=== PATIENT | male | born 1990 | race Caucasian/White ===

== ENCOUNTER 2017-03-25 09:47 | Emergency (ER) | payer SELFPAY ==
[2017-03-25 10:09] VITALS: BP 123/68
--- NOTE | 2017-03-25 10:52 | UC ---
Skin Complaint HPI - HPI Summary HPI Summary: 2 days ago noticed a red bumpy rash on L back and ribs. Is very painful and itchy, much worse today. friends/family told him it looked like shingles. Denies fever, vomiting, cough, or other signs of illness. - History of Current Complaint Hx Obtained From: Patient Onset/Duration: Gradual Onset, Lasting Days Timing: Constant Onset Severity: Mild Current Severity: Moderate Location: Discrete Character: Pain, Redness Aggravating: Clothing Alleviating: Nothing Associated Signs & Symptoms: Positive: Rash <Angelita Ling - Last Filed: 03/25/17 10:49> <Mylene Roque - Last Filed: 03/25/17 11:27> - History of Current Complaint Chief Complaint: UCRash Time Seen by Provider: 03/25/17 10:24 Stated Complaint: RASH - Allergy/Home Medications Allergies/Adverse Reactions: Allergies Allergy/AdvReac Type Severity Reaction Status Date / Time No Known Allergies Allergy Verified 03/25/17 10:09 Review of Systems Constitutional: Negative Skin: Rash Eyes: Negative ENT: Negative Respiratory: Negative Cardiovascular: Negative Gastrointestinal: Negative Genitourinary: Negative Motor: Negative Neurovascular: Negative Musculoskeletal: Negative Neurological: Negative Psychological: Negative All Other Systems Reviewed And Are Negative: Yes <Angelita Ling - Last Filed: 03/25/17 10:49> PMH/Surg Hx/FS Hx/Imm Hx Previously Healthy: Yes Endocrine History Of: Denies: Diabetes, Thyroid Disease Cardiovascular History Of: Denies: Cardiac Disorders, Hypertension Respiratory History Of: Denies: COPD, Asthma GI/ History Of: Denies: Ulcer - Surgical History Surgical History: Yes Surgery Procedure, Year, and Place: Appendectomy, 2006, [facility] [place] - Family History Known Family History: Positive: None, Diabetes - grandmother Negative: Cardiac Disease, Hypertension - Social History Alcohol Use: Weekly Alcohol Amount: last night at [employer] party Substance Use Type: Heroin, Marijuana, 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 Smoking Status (MU): Heavy Every Day Tobacco Smoker Type: Cigarettes Amount Used/How Often: 1/2 PPD Length of Time of Smoking/Using Tobacco: since age 15 Have You Smoked in the Last Year: Yes When Did the Patient Quit Smoking/Using Tobacco: 6 MO AGO Household Exposure Type: Cigarettes - Immunization History Most Recent Influenza Vaccination: Not the <Angelita Ling - Last Filed: 03/25/17 10:49> Physical Exam Triage Information Reviewed: Yes Appearance: Well-Appearing, No Pain Distress, Well-Nourished Vital Signs: Initial Vital Signs Temp 99.6 F 03/25/17 10:02 Pulse 57 03/25/17 10:02 Resp 16 03/25/17 10:02 BP 123/68 03/25/17 10:02 Pulse Ox 100 03/25/17 10:02 Vital Signs Reviewed: Yes Eye Exam: Normal Eyes: Positive: Conjunctiva Clear ENT Exam: Normal ENT: Positive: Normal ENT inspection, Hearing grossly normal, Pharynx normal, TMs normal. Negative: Tonsillar swelling, Tonsillar exudate Dental Exam: Other - edentulous Neck exam: Normal Respiratory Exam: Normal Respiratory: Positive: Lungs clear, Normal breath sounds, No respiratory distress, No accessory muscle use Cardiovascular Exam: Normal Cardiovascular: Positive: RRR, No Murmur Musculoskeletal Exam: Normal Neurological Exam: Normal Neurological: Positive: Alert Psychological Exam: Normal Skin Exam: Other - grouped papular and vesicular rash on back and L ribs in dermatomal distribution <Angelita Ling - Last Filed: 03/25/17 10:49> Vital Signs: Initial Vital Signs Temp 99.6 F 03/25/17 10:02 Pulse 57 03/25/17 10:02 Resp 16 03/25/17 10:02 BP 123/68 03/25/17 10:02 Pulse Ox 100 03/25/17 10:02 <Mylene Roque - Last Filed: 03/25/17 11:27> Course/Dx - Diagnoses Provider Diagnoses: herpes zoster L trunk. elevated blood pressure due to discomfort <Angelita Ling - Last Filed: 03/25/17 10:49> Discharge <Angelita Ling - Last Filed: 03/25/17 10:49> <Mylene Roque - Last Filed: 03/25/17 11:27> - Discharge Plan Condition: Stable Disposition: HOME Prescriptions: Indomethacin CAP* [Indocin CAP*] 50 mg PO TID PRN #30 cap PRN Reason: Pain ValACYclovir (*) [Valtrex 1 GM(*)] 1 gm PO TID #21 tab Patient Education Materials: Shingles (ED) Referrals: [facility] [place] PHYSICIAN REFERRAL [Outside] Additional Instructions: Please arrange to see a primary care provider for your ongoing health needs in the next month. Attestation Statement User Type: Provider - I was available for consult. This patient was seen by the TITA. The patient was not presented to, seen by, or examined by me. -Estevan <Mylene Roque - Last Filed: 03/25/17 11:27>
== END 2017-03-25 11:01 | disposition home or self-care (01) ==
LOC: UCEAST 09:47
DX: B02.9 Zoster without complications (principal); R03.0 Elevated blood-pressure reading, without diagnosis of hypertension; Z87.891 Personal history of nicotine dependence
CPT/HCPCS: 99212; G0463

== ENCOUNTER 2017-08-12 13:33 | Emergency (ER) | payer SELFPAY ==
[2017-08-12 13:40] VITALS: BP 116/71
[2017-08-12] MEDS ORDERED: Eye Irrigation Solution 30 ML BOTTLE LEFT EYE ONE (13:58)
[2017-08-12] MEDS ORDERED: Fluorescein Sodium TOPICAL* 1 MG TEST OPHTHALMIC ONE (13:58)
[2017-08-12] MEDS ORDERED: Tetracaine 0.5% OPTH.SOL 4 ML* 1 DROP BTL LEFT EYE ONE (13:58)
--- NOTE | 2017-08-12 14:39 | UC ---
Eye Complaint HPI - HPI Summary HPI Summary: ONE DAY OF LEFT EYE REDNESS, IRRITATION, AND LIGHT SENSITIVITY. CLEAR DISCHARGE , PURULENT DISCHARGE THIS MORNING. WEARS CONTACT LENSES. NO RASHES. NO CHANGES IN VISION. NO PAIN WITH EYE MOVEMENT. - History of Current Complaint Chief Complaint: UCEye Stated Complaint: EYE ISSUE Time Seen by Provider: 08/12/17 13:52 Hx Obtained From: Patient Onset/Duration: Gradual Onset, Lasting Hours Timing: Constant Severity Initially: Moderate Severity Currently: Moderate Location of Injury: Conjunctiva Character: Dull Alleviating Factor(s): Nothing Associated Signs And Symptoms: Positive: Photophobia, Drainage (Clear), Drainage (Purulent) Related History: Similar Episode - IN ADOLESCENCE, Diagnosed As: - CONJUNCTIVITIS - Risk Factors Penetrating Injury Risk Factor: Negative Acute Glaucoma Risk Factors: Eye Inflammation Optic Artery Occlusion Risk Factors: Negative - Allergies/Home Medications Allergies/Adverse Reactions: Allergies Allergy/AdvReac Type Severity Reaction Status Date / Time No Known Allergies Allergy Verified 08/12/17 13:40 PMH/Surg Hx/FS Hx/Imm Hx Previously Healthy: Yes - Surgical History Surgical History: Yes Surgery Procedure, Year, and Place: Appendectomy, 2007, [facility] [place] - Family History Known Family History: Positive: None, Diabetes - grandmother Negative: Cardiac Disease, Hypertension - Social History Occupation: Unemployed Lives: With Family Alcohol Use: Occasionally Alcohol Amount: last night at [employer] Substance Use Type: Marijuana Substance Use Comment - Amount & Last Used: hx heroine Smoking Status (MU): Former Smoker Type: Cigarettes Amount Used/How Often: 1/2 PPD Length of Time of Smoking/Using Tobacco: since age 15 Have You Smoked in the Last Year: Yes When Did the Patient Quit Smoking/Using Tobacco: 2 weeks Household Exposure Type: Cigarettes Cessation Counseling: Patient Advised to Stop - Immunization History Most Recent Influenza Vaccination: none Review of Systems Constitutional: Negative Skin: Negative Eyes: Drainage, Eye Redness, Photophobia ENT: Negative Respiratory: Negative Cardiovascular: Negative Gastrointestinal: Negative Genitourinary: Negative Motor: Negative Neurovascular: Negative Musculoskeletal: Negative Neurological: Negative Psychological: Negative Is Patient Immunocompromised?: No All Other Systems Reviewed And Are Negative: Yes Physical Exam Triage Information Reviewed: Yes Appearance: Well-Appearing, No Pain Distress, Well-Nourished, Thin Vital Signs: Initial Vital Signs Temp 98.4 F 08/12/17 13:34 Pulse 93 10/17/17 13:34 Resp 16 08/12/17 13:34 BP 116/71 08/12/17 13:34 Pulse Ox 100 08/12/17 13:34 Vital Signs Reviewed: Yes Eyes: Positive: Conjunctiva Inflamed - LEFT, Discharge, Other: - LEFT FLUORESCEIN UPTAKE 4 OCLOCK TO 7 OCLOCK. ENT: Positive: Normal ENT inspection, Hearing grossly normal, Pharynx normal, TMs normal Dental Exam: Normal Neck exam: Normal Neck: Positive: Supple, Nontender Respiratory Exam: Normal Respiratory: Positive: Chest non-tender, Lungs clear, Normal breath sounds, No respiratory distress, No accessory muscle use Cardiovascular Exam: Normal Cardiovascular: Positive: RRR, No Murmur Abdominal Exam: Normal Musculoskeletal Exam: Normal Neurological Exam: Normal Psychological Exam: Normal Skin Exam: Normal Eye Complaint Course/Dx - Differential Dx/Diagnosis Differential Diagnosis/HQI/PQRI: Conjunctivitis, Corneal Abrasion, Keratitis Provider Diagnoses: LEFT KERATITIS Discharge - Discharge Plan Condition: Stable Disposition: HOME Prescriptions: Tobramycin 0.3% OPHTH.ANA MARIA* 1 drop LEFT EYE Q2HR #1 btl Patient Education Materials: Keratitis (ED) Referrals: No Primary Care Phys,NOPCP [Primary Care Provider] - [facility] [place] PHYS[facility]IAN REFERRAL [Outside] Atif Coyne MD [Medical Doctor] -
== END 2017-08-12 14:45 | disposition home or self-care (01) ==
LOC: UCEAST 13:33
DX: H16.9 Unspecified keratitis (principal); F17.210 Nicotine dependence, cigarettes, uncomplicated
CPT/HCPCS: 99212; A9270-GY; G0463